=== PATIENT | female | born 1995 | race African-American/Black ===

== ENCOUNTER 2025-02-02 14:40 | Emergency (ER) | payer MEDICAID ==
[~2025-02-02] VITALS: Ht 157.5 cm; Wt 65.0 kg
[2025-02-02 14:50] VITALS: O2SAT 100
[2025-02-02 16:37] LABS: BASOPHILS % 0.9 % (0.0-2.0); EOSINOPHILS % 3.5 % (0.0-5.0); HEMATOCRIT. 38.6 % (36.0-48.0); HEMOGLOBIN. 12.8 g/dL (12.0-16.0); LYMPHOCYTES % 34.9 % (20.0-50.0); MEAN CORPUSCULAR HEMOGLOBIN 26.8 pg (28.0-32.0); MEAN CORPUSCULAR HGB CONC 33.1 g/dL (31.0-37.0); MEAN CORPUSCULAR VOLUME 80.8 fL (81.0-99.0); MEAN PLATELET VOLUME 8.1 fl (7.4-10.4); MONOCYTES % 10.2 % (2.0-8.0); NEUTROPHILS % 50.5 % (40.0-76.0); PLATELET 277 x1000/uL (130-400); RED BLOOD CELL COUNT 4.77 mill/uL (4.2-5.4); RED CELL DISTRIBUTION WIDTH 14.1 % (11.6-14.6); WHITE BLOOD COUNT 5.6 x1000/uL (4.5-11.0)
[2025-02-02 16:44] LABS: CHLORIDE 111 mEq/L (98-107); POTASSIUM 3.6 mEq/L (3.5-5.1); SODIUM 141 mEq/L (136-145)
[2025-02-02 16:45] LABS: CARBON DIOXIDE 22 mEq/L (21-32)
[2025-02-02 16:46] LABS: CALCIUM 9.7 mg/dL (8.7-10.4)
[2025-02-02 16:50] LABS: CREATININE 0.8 mg/dL (0.6-1.0); GLUCOSE 120 mg/dL (70-105)
[2025-02-02 16:51] LABS: UREA NITROGEN BLOOD 9 mg/dL (9-23)
[2025-02-02 17:05] VITALS: BP 122/76; PULSE 85; RESP 16; TEMP 37.1; O2SAT 99
== END 2025-02-02 17:07 | disposition home or self-care (01) ==
LOC: ER 14:40
DX: N93.9 Abnormal uterine and vaginal bleeding, unspecified (principal); J45.909 Unspecified asthma, uncomplicated
CPT/HCPCS: 36415; 80048; 85025; 86850; 86900; 99283